=== PATIENT | female | born 1995 | race African-American/Black ===

== ENCOUNTER 2016-09-18 13:14 | Emergency (ER) | payer MEDICAID ==
[2016-09-18 13:38] VITALS: BP 105/68; BMI 28.9
--- NOTE | 2016-09-18 14:26 | ED.ABDFE ---
HPI - Time seen Time seen: 14:35 - PCP Primary Care Physician: NFD - Complaint Chief Complaint Doctors Comments: Patient is a 21 y/ single female with a three week history of stomach pain w/o vaginal discharge. She states that her LMP 14 June. She denies cigarettes or alcohol use. Chief Complaint:: LOWER ABD PAIN FOR WEEKS, PT IS AND HAS NOT BEEN ASSIGNED A PHYSICIAN AT THIS TIME - Source History Provided: Patient - Mode of arrival Mode of Arrival: Ambulatory - Timing Onset of Chief Complaint: 08/27/16 PMH - PMH Past Medical History: No Past Surgical History: No - Family History History of Family Medical Conditions: No - Social History Alcohol Use: None Do you use any recreational Drugs:: No Lives With: Family Lives Where: Home - infectious screening In the last 2 months have you had wt loss of >10#?: NO Have you had fever, night sweats or hemotysis?: No Have you traveled outside the country in the last 6 months?: No Isolation: Standard ROS - Review of Systems Eyes: No Symptoms Reported ENTM: No Symptoms Reported, Hearing Loss Cardiovascular: No Symptoms Reported Gastrointestinal/Abdominal: No Symptoms Reported Genitourinary: No Symptoms Reported Neurological: No Symptoms Reported Musculoskeletal: No Symptoms Reported Integumentary: No Symptoms Reported Hematologic/Lymphatic: No Symptoms Reported Endocrine: No Symptoms Reported Psychiatric: No Symptoms Reported All Other Systems: Reviewed and Negative PE - Vital Signs Vitals: Temperature 98.0 F Pulse Rate 90 Respiratory Rate 14 Blood Pressure 105/68 O2 Sat by Pulse Oximetry 97 - General General Appearance: Alert, In No Apparent Distress - Head Head Exam: Normal Inspection, Atraumatic - Eyes Eye exam: Normal Appearance, PERRL, EOMI - ENT ENT Exam: Normal Exam - Neck Neck Exam: Normal Inspection, Full ROM - Chest Chest Inspection: Normal Inspection - Respiratory Respiratory Exam: Normal Lung Sounds Bilat Respiratory Exam: Bilateral Clear to Auscultation - Cardiovascular Cardiovascular Exam: Regular Rate, Normal Rhythm - Abdominal Exam Abdominal Exam: Normal Inspection, Normal Bowel Sounds Abdominal Tenderness: negative: RUQ, RLQ, LUQ, LLQ, Epigastrium, Suprapubic, Diffuse, Mild, Moderate, Severe, Other - Rectal Rectal Exam: Deferred - Back Back Exam: Normal Inspection - Extremeties Extremities Exam: Normal Inspection, Full ROM - External Exam: Female: Deferred : Speculum Exam (Female): Deferred : Bimanual Exam (female): Deferred - Neurologic Neurological Exam: Alert, Oriented X3, CN II-XII Intact - Psychiatric Psychiatric Exam: Normal Affect, Normal Mood - Skin Skin Exam: Warm, Dry, Intact ROR - Labs Reviewed Laboratory Results Reviewed?: Yes (UA quantative HCG [id number]) Result Diagrams: 09/18/16 14:45 09/18/16 14:45 Laboratory: WBC 5.3 X10^3/uL (3.6-10.0) 09/18/16 14:45 RBC 4.22 X10^6/uL (3.5-5.4) 09/18/16 14:45 Hgb 11.5 g/dL (12.0-16.0) L 09/18/16 14:45 Hct 33.9 % (36.0-47.0) L 09/18/16 14:45 MCV 80.3 fL (80.0-100.0) 09/18/16 14:45 MCH 27.2 pg (27.0-34.0) 09/18/16 14:45 MCHC 33.9 g/dL (33.0-35.0) 09/18/16 14:45 RDW 13.7 % (11.6-16.5) 09/18/16 14:45 Plt Count 223 X10^3/uL (150.0-450.0) 09/18/16 14:45 MPV 8.6 fL (7.4-11.0) 09/18/16 14:45 Neut % 50.3 % (42.0-75.0) 09/18/16 14:45 Lymph % 37.5 % (21.0-51.0) 09/18/16 14:45 Williamson % 10.8 % (0.0-13.0) 09/18/16 14:45 Eos % 1.1 % (0.9-2.9) 09/18/16 14:45 Baso % 0.3 % (0.2-1.0) 09/18/16 14:45 Neut # 2.7 x10^3/uL (2.2-4.8) 09/18/16 14:45 Lymph # 2.0 X10^3/uL (1.3-2.9) 09/18/16 14:45 Williamson # 0.6 x10^3/uL (0.3-0.8) 09/18/16 14:45 Eos # 0.1 x10^3/uL (0.0-0.2) 09/18/16 14:45 Baso # 0.0 X10^3/uL (0.0-0.1) 09/18/16 14:45 Absolute Nucleated RBC 0.0 /100WBC 09/18/16 14:45 Sodium 137 mmol/L (136-145) 09/18/16 14:45 Corrected Sodium TNP 09/18/16 14:45 Potassium 4.2 mmol/L (3.5-5.1) 09/18/16 14:45 Chloride 103 mmol/L (98-107) 09/18/16 14:45 Carbon Dioxide 27.3 mmol/L (21-32) 09/18/16 14:45 BUN 8 mg/dL (7-18) 09/18/16 14:45 Creatinine 0.56 mg/dL (0.55-1.02) 09/18/16 14:45 Est GFR (MDRD) Af Amer > 60 (>60) 09/18/16 14:45 Est GFR (MDRD) Non-Af > 60 (>60) 09/18/16 14:45 Glucose 77 mg/dL (65-99) 09/18/16 14:45 Calcium 8.5 mg/dL (8.5-10.1) 09/18/16 14:45 Corrected Calcium 9.3 mg/dL (8.5-10.1) 09/18/16 14:45 Total Bilirubin 0.30 mg/dL (0.2-1.0) 09/18/16 14:45 AST 18 Units/L (15-37) 09/18/16 14:45 ALT 20 Units/L (12-78) 09/18/16 14:45 Alkaline Phosphatase 47 Units/L (46-116) 09/18/16 14:45 Total Protein 7.1 g/dL (6.4-8.2) 09/18/16 14:45 Albumin 3.0 g/dL (3.4-5.0) L 09/18/16 14:45 Globulin 4.1 g/dL (2.5-4.5) 09/18/16 14:45 Albumin/Globulin Ratio 0.7 Ratio (1.1-2.1) L 09/18/16 14:45 HCG, Quant 25990 mIU/mL (0-6) H 09/18/16 14:45 Specimen Type Clean catch urine 09/18/16 14:12 Urine Color Yellow (YELLOW) 09/18/16 14:12 Urine Appearance Hazy (CLEAR) 09/18/16 14:12 Urine pH 6.5 (5.0 - 8.0) 09/18/16 14:12 Ur Specific [place] 1.015 (1.000-1.030) 09/18/16 14:12 Urine Protein Negative (NEGATIVE) 09/18/16 14:12 Urine Glucose (UA) Negative (NEGATIVE) 09/18/16 14:12 Urine Ketones Negative (NEGATIVE) 09/18/16 14:12 Urine Occult Blood Negative (NEGATIVE) 09/18/16 14:12 Urine Nitrite Negative (NEGATIVE) 09/18/16 14:12 Urine Bilirubin Negative (NEGATIVE) 09/18/16 14:12 Urine Urobilinogen Normal (NORMAL) 09/18/16 14:12 Ur Leukocyte Esterase 1+ (NEGATIVE) 09/18/16 14:12 Urine RBC 0-2 /HPF (NEGATIVE) 09/18/16 14:12 Urine WBC 3-5 /HPF (NEGATIVE) 09/18/16 14:12 Ur Squamous Epith Cells Rare /HPF (NEGATIVE) 09/18/16 14:12 Urine Bacteria Trace /HPF (NEGATIVE) 09/18/16 14:12 Ur Culture Indicated? No/not indicated 09/18/16 14:12 - Diagnosis Discharge Problem: Qualifiers: Weeks of gestation: 14 weeks Qualified Code(s): Z3A.14 - 14 weeks gestation of - Discharge Plan Condition: Stable - Follow ups/Referrals Follow ups/Referrals: NFD,None [Primary Care Provider] - 3 days - Instructions
[2016-09-18 14:28] LABS: APPEARANCE,URINE HAZY (CLEAR); COLOR,URINE YELLOW (YELLOW); GLUCOSE, URINE NEGATIVE (NEGATIVE); KETONES,URINE NEGATIVE (NEGATIVE); PH,URINE 6.5 (5.0 - 8.0); PROTEIN,URINE NEGATIVE (NEGATIVE)
[2016-09-18 14:29] LABS: BACTERIA,URINE TRACE /HPF (NEGATIVE); BILIRUBIN,URINE NEGATIVE (NEGATIVE); BLOOD/HEMOGLOBIN,URINE NEGATIVE (NEGATIVE); LEUKOCYTE ESTERASE ,URINE 1+ (NEGATIVE); NITRITES,URINE NEGATIVE (NEGATIVE); RBC,URINE 0-2 /HPF (NEGATIVE); SQUAMOUS EPITHELIAL CELL,UR RARE /HPF (NEGATIVE); UROBILINOGEN,URINE NORMAL (NORMAL)
[2016-09-18 15:10] LABS: BASOPHILS % (AUTO) 0.3 % (0.2-1.0); EOSINOPHILS # (AUTO) 0.1 x10^3/uL (0.0-0.2); EOSINOPHILS % (AUTO) 1.1 % (0.9-2.9); HEMATOCRIT 33.9 % (36.0-47.0); HEMOGLOBIN 11.5 g/dL (12.0-16.0); LYMPHOCYTES % (AUTO) 37.5 % (21.0-51.0); MEAN CORPUSCULAR HEMOGLOBIN 27.2 pg (27.0-34.0); MEAN CORPUSCULAR HGB CONC 33.9 g/dL (33.0-35.0); MEAN CORPUSCULAR VOLUME 80.3 fL (80.0-100.0); MEAN PLATELET VOLUME 8.6 fL (7.4-11.0); MONOCYTES # (AUTO) 0.6 x10^3/uL (0.3-0.8); MONOCYTES % (AUTO) 10.8 % (0.0-13.0); NEUTROPHILS # (AUTO) 2.7 x10^3/uL (2.2-4.8); NEUTROPHILS % (AUTO) 50.3 % (42.0-75.0); PLATELET COUNT 223 X10^3/uL (150.0-450.0); RED BLOOD COUNT 4.22 X10^6/uL (3.5-5.4); RED CELL DISTRIBUTION WIDTH 13.7 % (11.6-16.5); WHITE BLOOD COUNT 5.3 X10^3/uL (3.6-10.0)
[2016-09-18 15:22] LABS: ALANINE AMINOTRANSFERASE 20 Units/L (12-78); ALKALINE PHOSPHATASE 47 Units/L (46-116); ASPARTATE AMINO TRANSFERASE 18 Units/L (15-37); BLOOD UREA NITROGEN 8 mg/dL (7-18); CALCIUM 8.5 mg/dL (8.5-10.1); CARBON DIOXIDE 27.3 mmol/L (21-32); CHLORIDE 103 mmol/L (98-107); COR CA(FOR HYPOALB) 9.3 mg/dL (8.5-10.1); CREATININE 0.56 mg/dL (0.55-1.02); GLUCOSE 77 mg/dL (65-99); SODIUM 137 mmol/L (136-145); TOTAL PROTEIN 7.1 g/dL (6.4-8.2); eGFR BLACK RACES > 60 (>60); eGFR NON BLACK RACES > 60 (>60)
[2016-09-18 15:44] LABS: HCG,QUANTITATIVE 99652 mIU/mL (0-6)
== END 2016-09-18 16:05 | disposition home or self-care (01) ==
LOC: ER 13:41
DX: O26.891 Other specified pregnancy related conditions, first trimester (principal); Z3A.14 14 weeks gestation of pregnancy
CPT/HCPCS: 36415; 80053; 81001; 84702; 85025; 99282; 99283; 99284

== ENCOUNTER 2017-02-02 21:44 | Emergency (ER) | payer MEDICAID, OTHER ==
[2017-02-02 21:51] VITALS: BP 119/64; BMI 34.0
--- NOTE | 2017-02-02 22:15 | DR.PREG ---
HPI - PCP Primary Care Physician: LARRY - Chief Complaint Chief Complaint:: [address] JUAREZ C/O LOWER ABD AND BACK CONTRACTIONS EVERY 5 TO 6 MINUTES G 3 P 2 A 0 DUE DATE 03/13/17 - Source History Provided: Patient - Mode of Arrival Mode of Arrival: Ambulatory - Timing Onset of Chief Complaint: 02/02/17 PMH - PMH Past Medical History: No Past Surgical History: No - Family History History of Family Medical Conditions: No - Social History Does patient currently use any type of tobacco product: No Have you used tobacco products in the last 12 months: No Type of Tobacco Use: None Does any household member use tobacco: No Alcohol Use: None Do you use any recreational Drugs:: No Lives With: Family Lives Where: Home - infectious screening In the last 2 months have you had wt loss of >10#?: NO Have you had fever, night sweats or hemotysis?: No Have you traveled outside the country in the last 6 months?: No Isolation: Standard PE - Vital Signs Vitals: Temperature 98.6 F Pulse Rate 101 Respiratory Rate 18 Blood Pressure 119/64 O2 Sat by Pulse Oximetry 100 - Discharge Plan Condition: Stable - Follow ups/Referrals Follow ups/Referrals: CELESTINO JUAREZ [Primary Care Provider] - 3 days - Instructions
[2017-02-02 22:45] LABS: BILIRUBIN,URINE NEGATIVE (NEGATIVE); BLOOD/HEMOGLOBIN,URINE 1+ (NEGATIVE); GLUCOSE, URINE NEGATIVE (NEGATIVE); KETONES,URINE NEGATIVE (NEGATIVE); LEUKOCYTE ESTERASE ,URINE 1+ (NEGATIVE); NITRITES,URINE NEGATIVE (NEGATIVE); PH,URINE 6.5 (5.0 - 8.0); PROTEIN,URINE NEGATIVE (NEGATIVE); UROBILINOGEN,URINE NORMAL (NORMAL)
[2017-02-02 22:52] LABS: APPEARANCE,URINE CLEAR (CLEAR); BACTERIA,URINE TRACE /HPF (NEGATIVE); COLOR,URINE YELLOW (YELLOW); RBC,URINE 0-3 /HPF (NEGATIVE); SQUAMOUS EPITHELIAL CELL,UR RARE /HPF (NEGATIVE)
[2017-02-02 22:53] LABS: MUCUS,URINE FEW /HPF (NEGATIVE)
[2017-02-02] MEDS ORDERED: BRETHINE INJ 1 MG VIAL SC ONE ×2 (23:05→23:06)
[2017-02-02] MEDS ORDERED: NS 1000 ML 1,000 ML ONE (23:06)
[2017-02-02] MEDS ORDERED: NS 1000 ML 1,000 ML IV ONE (23:06)
== END 2017-02-03 00:32 | disposition home or self-care (01) ==
LOC: ER 21:56
DX: O60.03 Preterm labor without delivery, third trimester (principal); Z3A.34 34 weeks gestation of pregnancy
CPT/HCPCS: 81001; 96365; 96372; 99284; A4222; J3105